=== PATIENT | male | born 1955 | race Caucasian/White ===

== ENCOUNTER 2016-11-20 01:24 | Emergency (ER) | payer OTHER, BC ==
[2016-11-20 01:30] VITALS: BP 123/87
[2016-11-20] MEDS ORDERED: Lidocaine 1% with EPINEPHrine 1:100,000 20 ML MDV ONE (01:34)
[2016-11-20] MEDS ORDERED: Lidocaine 1% with EPINEPHrine 1:100,000 20 ML MDV INJECT ONE (01:43)
[2016-11-20] MEDS ORDERED: Diphtheria,Pertussis(Acell),Tetanus Vaccine 0.5 ML Syringe IM ONE (01:48)
[2016-11-20] MEDS ORDERED: Bacitracin/Neomycin/Polymyxin B Oint 0.9 GM U/D Packet ONE (01:53)
[2016-11-20] MEDS ORDERED: Bacitracin/Neomycin/Polymyxin B Oint 0.9 GM U/D Packet TOP ONE (01:57)
--- NOTE | 2016-11-20 02:04 | EDM.PDOC ---
ED HPI GENERAL MEDICAL PROBLEM - General Chief Complaint: Laceration Stated Complaint: laceration Time Seen by Provider: 11/20/16 01:30 Source of Information: Reports: Patient History Limitations: Reports: No Limitations - History of Present Illness INITIAL COMMENTS - FREE TEXT/NARRATIVE: Was at [employer] working when he received a 3.5 cm laceration to he left inner forearm. It is gapping with minimal amount of bleeding. No other injuries noted. He s not sure of tetanus but thins he received one about 4-5 years ago when he was injured. Onset: Today Location: Reports: Upper Extremity, Left Left Arm Pain Score (Numeric/FACES): 1 - Related Data Allergies Allergy/AdvReac Type Severity Reaction Status Date / Time No Known Allergies Allergy Verified 11/20/16 01:26 Home Meds: Home Meds . [No Known Home Meds] 10/25/13 [History] Past Medical History HEENT History: Reports: Impaired Vision Musculoskeletal History: Reports: Arthritis, Fracture Neurological History: Reports: Concussion Psychiatric History: Reports: ADHD - Past Surgical History Neurological Surgical History: Reports: Spinal Fusion Musculoskeletal Surgical History: Reports: Amputation, ORIF, Other (See Below) Other Musculoskeletal Surgeries/Procedures:: tips of fingers Social & Family History - Tobacco Use Smoking Status *Q: Current Every Day Smoker Years of Tobacco use: 50 Packs/Tins Daily: 1 Used Tobacco, but Quit: No Second Hand Smoke Exposure: Yes - Alcohol Use Days Per Week of Alcohol Use: 1 Number of Drinks Per Day: 1 Total Drinks Per Week: 1 - Recreational Drug Use Recreational Drug Use: No ED ROS GENERAL - Review of Systems Review Of Systems: See Below Constitutional: Reports: No Symptoms Skin: Reports: Wound (left forearm) ED EXAM, SKIN/RASH Exam: See Below Exam Limited By: No Limitations General Appearance: Alert, WD/WN, No Apparent Distress Extremities: Normal Inspection, Normal Range of Motion, Normal Capillary Refill Skin: Warm, Dry, Wound/Incision (3.5 cm laceration to the left inner forearm. ) Location, Skin: Upper Extremity, Left ED SKIN PROCEDURES - Laceration/Wound Repair Left Lower Arm Lac/Wound length In cm: 3.5 Appearance: Linear Distal NVT: Neuro & Vascular Intact Anesthetic Type: Local Local Anesthesia - Lidocaine (Xylocaine): 1% with EPI Local Anesthetic Volume: 2cc Skin Prep: Sterile Drape Exploration/Debridement/Repair: No Foreign Material Found Closed with: Sutures Suture Size: 4-0 # of Sutures: 8 Suture Type: Nylon, Interrupted Tetanus Status Addressed: Yes Complications: No Course - Vital Signs Last Recorded V/S: Last Vital Signs Temp 97.5 F 11/20/16 01:27 Pulse 81 11/20/16 01:27 Resp 16 11/20/16 01:27 BP 123/87 11/20/16 01:27 Pulse Ox 98 11/20/16 01:27 - Orders/Labs/Meds Orders: Active Orders 24 hr Category Date Time Status Vaccines to be Administered [RC] PER UNIT ROUTINE Care 11/20/16 01:48 Active Meds: Medications Discontinued Medications Generic Name Dose Route Start Last Admin Trade Name Rogelio PRN Reason Stop Dose Admin Diphtheria/Tetanus/Acell Pertussis 0.5 ml 11/20/16 01:48 11/20/16 01:56 Adacel IM 11/20/16 01:49 Not Given .ONCE ONE Lidocaine/Epinephrine 20 ml 11/20/16 01:43 11/20/16 01:51 Xylocaine 1% With Epinephrine 1:100,000 INJECT 11/20/16 01:44 20 ml ONETIME ONE Administration Lidocaine/Epinephrine Confirm 11/20/16 01:34 11/20/16 01:51 Xylocaine 1% With Epinephrine 1:100,000 Administered 11/20/16 01:35 Not Given Dose 20 ml .ROUTE .STK-MED ONE Neomycin/Polymyxin/Bacitracin 1 each 11/20/16 01:57 Triple Antibiotic Oint TOP 11/20/16 01:58 ONETIME ONE Departure - Departure Time of Disposition: 02:05 Disposition: Home, Self-Care 01 Condition: Good Clinical Impression: Laceration - Discharge Information Instructions: Laceration Care, Adult, [id number] Forms: ED Department Discharge Additional Instructions: keep clean and dry use antibiotic and dressing of choice Keep covered at work. May leave open at home May shower but do not soak sutures out in approximately 10 days We will check tetanus status tomorrow. If you need one someone will contact you to return for one If any sign of infection return to clinic - Problem List & Annotations (1) Laceration SNOMED Code(s): 019473134 Code(s): BAV6534 - Status: Acute Priority: High Current Visit: Yes - Problem List Review Problem List Initiated/Reviewed/Updated: Yes - My Orders Last 24 Hours: My Active Orders 11/20/16 01:48 Vaccines to be Administered [RC] PER UNIT ROUTINE - Assessment/Plan Last 24 Hours: My Active Orders 11/20/16 01:48 Vaccines to be Administered [RC] PER UNIT ROUTINE
== END 2016-11-20 02:17 | disposition home or self-care (01) ==
LOC: CC.ED 01:24
DX: S51.812A Laceration without foreign body of left forearm, initial encounter (principal); F17.210 Nicotine dependence, cigarettes, uncomplicated; Z98.1 Arthrodesis status; Z98.890 Other specified postprocedural states; W45.8XXA Other foreign body or object entering through skin, initial encounter; Y99.0 Civilian activity done for income or pay
CPT/HCPCS: 12002; 96372; 99282

== ENCOUNTER 2019-05-13 04:13 | Emergency (ER) | payer OTHER ==
[2019-05-13 04:15] VITALS: BP 125/84; PULSE 93
--- NOTE | 2019-05-13 04:57 | EDM.PDOC ---
ED HPI GENERAL MEDICAL PROBLEM - General Chief Complaint: Upper Extremity Injury/Pain Stated Complaint: R)wrist injury Time Seen by Provider: 05/13/19 04:35 Source of Information: Reports: Patient History Limitations: Reports: No Limitations - History of Present Illness INITIAL COMMENTS - FREE TEXT/NARRATIVE: Aníbal is a 63 yo male who presents to the ED with concerns of right wrist pain. 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 Admits he is able to bend and move his wrist. States work wanted it reevaluated. Admits it has gotten better since injury. Right Wrist Pain Score (Numeric/FACES): 3 - Related Data Allergies Allergy/AdvReac Type Severity Reaction Status Date / Time No Known Allergies Allergy Verified 05/13/19 04:15 Home Meds: Home Meds . [No Known Home Meds] 10/25/13 [History] Past Medical History HEENT History: Reports: Impaired Vision Musculoskeletal History: Reports: Arthritis, Fracture Neurological History: Reports: Concussion Psychiatric History: Reports: ADHD - Past Surgical History Neurological Surgical History: Reports: Spinal Fusion Musculoskeletal Surgical History: Reports: Amputation, ORIF, Other (See Below) Other Musculoskeletal Surgeries/Procedures:: tips of fingers Social & Family History - Family History Family Medical History: Noncontributory - Tobacco Use Smoking Status *Q: Former Smoker Used Tobacco, but Quit: Yes Month/Year Tobacco Last Used: 04/2018 - Caffeine Use Caffeine Use: Reports: Coffee - Recreational Drug Use Recreational Drug Use: No Review of Systems - Review of Systems Review Of Systems: Comprehensive ROS is negative, except as noted in HPI. ED EXAM, GENERAL - Physical Exam Exam: See Below Extremities: Other (Full ROM of right wrist. No significant swelling. All distal digits intact. 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 ). No: Joint Swelling Neurological: No Motor/Sensory Deficits Psychiatric: Normal Affect, Normal Mood Skin Exam: Warm, Dry, Intact, Normal Color, No Rash, Other (Prior surgical fixation noted. ) Course - Vital Signs Last Recorded V/S: Last Vital Signs Temp 95.9 F 05/13/19 04:13 Pulse 93 05/13/19 04:13 Resp 18 05/13/19 04:13 BP 125/84 05/13/19 04:13 Pulse Ox 97 05/13/19 04:13 - Orders/Labs/Meds Orders: Active Orders 24 hr Category Date Time Status Wrist Comp Min 3V Rt [CR] Stat Exams 05/13/19 04:22 Taken Departure - Departure Time of Disposition: 04:57 Disposition: Home, Self-Care 01 Clinical Impression: Wrist pain, right - Discharge Information Instructions: Wrist Pain, Adult, [id number] Forms: ED Department Discharge Sepsis Event Note - Evaluation Sepsis Screening Result: No Definite Risk - Focused Exam Vital Signs: Vital Signs Temp Pulse Resp BP Pulse Ox 05/13/19 04:13 95.9 F 93 18 125/84 97 Date Exam was Performed: 05/13/19 Time Exam was Performed: 04:51 - Problem List & Annotations (1) Wrist pain, right SNOMED Code(s): 00397926 Code(s): M25.531 - PAIN IN RIGHT WRIST Status: Acute - My Orders Last 24 Hours: My Active Orders 05/13/19 04:22 Wrist Comp Min 3V Rt [CR] Stat - Assessment/Plan Last 24 Hours: My Active Orders 05/13/19 04:22 Wrist Comp Min 3V Rt [CR] Stat Plan: X-rays negative. Prior hardware appears intact. Discussed symptomatic cares. Discharge in satisfactory condition.
== END 2019-05-13 05:15 | disposition home or self-care (01) ==
LOC: CC.ED 04:13
DX: M25.531 Pain in right wrist (principal); Z87.891 Personal history of nicotine dependence; W31.9XXA Contact with unspecified machinery, initial encounter; Y93.89 Activity, other specified; Y92.89 Other specified places as the place of occurrence of the external cause; Y99.0 Civilian activity done for income or pay
CPT/HCPCS: 73110-RT; 99283-25